=== PATIENT | male | born 1950 | race Caucasian/White ===

== ENCOUNTER → 2019-05-11 13:54 | Outpatient (BNVA) | payer MEDICARE, OTHER, SELFPAY | PROVIDERS: Family Provider Family Medicine; PCP Family Medicine; Visit Provider Anesthesiology | DX: M54.5 Low back pain (principal); M54.6 Pain in thoracic spine; Z87.81 Personal history of (healed) traumatic fracture; Z98.890 Other specified postprocedural states; Z79.891 Long term (current) use of opiate analgesic | CPT/HCPCS: 99214 ==

== ENCOUNTER → 2019-07-07 13:18 | Outpatient (BNVA) | payer MEDICARE, OTHER, SELFPAY | PROVIDERS: Family Provider Family Medicine; PCP Family Medicine; Visit Provider Nurse Practitioner | DX: Z76.89 Persons encountering health services in other specified circumstances (principal) | CPT/HCPCS: 99213 ==

== ENCOUNTER → 2021-11-13 08:59 | Outpatient (BNVA) | payer MEDICARE, OTHER, SELFPAY | PROVIDERS: Family Provider Family Medicine; PCP Family Medicine; Referring Provider Nurse Practitioner Family; Visit Provider Orthopaedic Surgery | DX: M54.6 Pain in thoracic spine (principal); S32.019A Unspecified fracture of first lumbar vertebra, initial encounter for closed fracture; W18.09XA Striking against other object with subsequent fall, initial encounter | CPT/HCPCS: 99203; 99204 ==

== ENCOUNTER 2024-05-24 12:32 | Emergency (ER) | payer MEDICARE, OTHER, SELFPAY ==
--- NOTE | 2024-05-24 12:34 | ECG_ITS ---
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 Measurements Intervals Scott Rate: 79 P: 79 ME: 200 QRS: -35 QRSD: 86 T: 45 QT: 382 QTc: 439 Interpretive Statements SINUS RHYTHM LEFT AXIS DEVIATION [QRS AXIS < -30] Compared to ECG 07/31/2017 14:58:55 Left-axis deviation now present Electronically Signed On 05-26-2024 17:33:19 STOCK SPECULATOR by Arnie Hill M.D. [id number] [id number]
[2024-05-24 12:41] VITALS: BP 147/84; PULSE 83; TEMP 36.3; O2SAT 99; BMI 22.4
--- NOTE | 2024-05-24 12:52 | XR_ITS ---
WS: [id number] PORTABLE CHEST HISTORY: cp COMPARISON: 06/08/2014 New interstitial reticulations at the lung bases but greater on the RIGHT. No dense area of consolidation. Normal pulmonary vasculature. No pleural effusion or pneumothorax. Cardiac size: Normal. Mediastinum/Aorta: Mildly ectatic aorta. Osteopenia with AC joint and glenohumeral joint arthritis. XR/XR chest 1V portable [id number] IMPRESSION: 1. New interstitial reticulations at the lung bases, RIGHT greater than LEFT. Mild pneumonitis suspected. 2. Mildly ectatic aorta.
[2024-05-24 13:26] LABS: Basophils % 0.7 %; Eosinophils # 0.2 10^3/uL (0.0-0.8); Eosinophils % 2.8 %; Hematocrit 49.6 % (37-53); Lymphocytes # 1.3 10^3/uL (0.8-4.8); Lymphocytes % 23.6 %; Mean Corpuscular HGB Conc 30.2 g/dL (30-55); Mean Corpuscular Hemoglobin 29.5 pg (27-33); Mean Corpuscular Volume 97.4 fl (82-101); Mean Platelet Volume 8.6 fL (7.4-10.4); Monocytes # 0.5 10^3/uL (0.2-0.9); Monocytes % 8.4 %; Neutrophils # 3.45 10^3/uL (1.8-7.7); Neutrophils % 64.3 %; Nucleated Red Blood Cells % 0 %; Platelet Count 227 10^3/cmm (157-399); Red Blood Count 5.09 10^6/uL (3.85-5.65); Red Cell Distribution Width 13.9 % (12.1-15.1); White Blood Count 5.37 10^3/uL (3.29-11.43)
[2024-05-24 13:55] LABS: Alanine Aminotransferase 13 U/L (0-41); Alkaline Phosphatase 138 U/L (40-130); Aspartate Amino Transferase 13 U/L (0-40); Blood Urea Nitrogen 14 mg/dL (8-23); Carbon Dioxide 23 mmol/L (22-29); Chloride 97 mmol/L (98-107); Creatinine Clr Calc Pharmacy 80.0707; Glucose 92 mg/dL (65-115); Osmolality Calculated 278 mOsm/kg (285-295); Sodium 134 mmol/L (136-145); Total Bilirubin 0.3 mg/dL (0.15-1.2)
[2024-05-24 13:57] LABS: Troponin(5th) Baseline < 6 ng/L (0-15)
[2024-05-24 13:59] LABS: Anion Gap 18.5 (5-19); Potassium 4.5 mmol/L (3.5-5.1)
--- NOTE | 2024-05-24 14:51 | ECG_ITS ---
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 Measurements Intervals [place] Rate: 84 P: 26 DC: 192 QRS: -29 QRSD: 81 T: 42 QT: 374 QTc: 443 Interpretive Statements SINUS RHYTHM WITH OCCASIONAL SUPRAVENTRICULAR PREMATURE COMPLEXES BORDERLINE LEFT AXIS DEVIATION [QRS AXIS < -20] Compared to ECG 05/24/2024 12:39:35 No significant changes Electronically Signed On 05-26-2024 18:06:16 CEO & BOARD DIRECTOR by Arnie Hill M.D. [email or web address] [id number]
--- NOTE | 2024-05-24 14:54 | W.ED.CHESTPA ---
HPI - Chest Pain General: Chief Complaint: Chest Pain Stated Complaint: chest pain, Sob,weak Time Seen by Provider: 05/24/24 14:31 Source: patient Mode of arrival: ambulatory Limitations: no limitations History of Present Illness: 74-year-old male who states that he has been having chest pain for the last week he states been a very sharp pain in the center of his chest seems to be worse with standing and movement. He also has some pain with palpation he denies any abdominal pain denies any vomiting or diarrhea. Associated symptoms: Deny abdominal pain, dyspnea, fever(s), nausea or vomiting Related Data Home Medications ?Medication ?Instructions ?Recorded ?Confirmed pantoprazole 40 mg tablet,delayed 40 mg PO DAILY 04/09/19 05/24/24 release phenytoin sodium extended 100 mg 200 mg PO TID 04/09/19 05/24/24 capsule phenobarbital 32.4 mg tablet 64.8 mg PO .BEDTIME 05/11/19 05/24/24 cyclobenzaprine 10 mg tablet 10 mg PO TID PRN Spasms 05/24/24 05/24/24 losartan 25 mg tablet 25 mg PO DAILY 05/24/24 05/24/24 Allergies Allergy/AdvReac Type Severity Reaction Status Date / Time acetaminophen (From Percocet) Allergy itching Verified 05/24/24 12:45 fluconazole (From Diflucan) Allergy unknown Verified 05/24/24 12:45 gabapentin Allergy dizziness Verified 05/24/24 12:45 hydrocodone Allergy ADR-Irritab Verified 05/24/24 12:45 le oxycodone (From Percocet) Allergy itching Verified 05/24/24 12:45 Review of Systems Const: Denies: fever(s), chills, body aches or change in appetite ENMT: Denies: throat pain or dental pain Card: Reports: chest pain Resp: Denies: dyspnea GI: Denies: abdominal pain, nausea, vomiting or diarrhea : Denies: dysuria Musc: Denies: neck pain or back pain Skin/Breast: Denies: rash Neuro: Denies: headache(s) [facility] ED PFSH: Medical History (Updated 05/24/24 @ 16:41 by Chiquita Garnica MD) Fall Encounter for long-term use of opiate analgesic Back pain, lumbosacral DDD (degenerative disc disease), lumbar Thoracic spine pain Chronic low back pain S/P neck surgery, follow-up exam 6 neck surgeries Opioid contract exists Surgical History S/P hernia repair S/P appendectomy S/P brain surgery 6 brain surgeries S/P carpal tunnel release left in 2013 Status post open reduction with internal fixation of fracture Dr. Clarke 08/01/2017-right elbow Family History Unknown Cancer Social History Smoking and tobacco/nicotine status: never used tobacco/nicotine Alcohol intake: never Substance/Drug Use: never Physical Exam Const: COMMON NORMALS: no acute distress, patient oriented x3 and healthy appearing HENMT: COMMON NORMALS: normocephalic and atraumatic HEAD & SCALP: normocephalic and atraumatic Eye: COMMON NORMALS: EOMs intact bilaterally Neck/C-Spine: COMMON NORMALS: full ROM and supple Chest: COMMONS NORMALS: normal inspection of the chest and normal palpation of entire chest wall Resp: COMMON NORMALS: normal respiratory effort, No retractions, No use of accessory muscles and clear to auscultation bilaterally AUSCULTATION: clear to auscultation bilaterally Cardio: COMMON NORMALS: regular rate, regular rhythm and No murmurs present (Cardio) RATE: regular rate RHYTHM: regular rhythm GI: COMMON NORMALS: Normal to inspection, nondistended, normoactive bowel sounds present, Soft to palpation, non-tender and no masses PALPATION: Yes Soft to palpation Extremity: COMMON NORMALS: normal to inspection and full ROM Neuro: COMMON NORMALS: patient oriented x3, moves all extremities and no focal motor deficits Psych: COMMON NORMALS: mental status grossly normal, Normal thought process present and cooperative THOUGHT PROCESS: Normal thought process present Skin: COMMON NORMALS: no rashes or lesions noted and no wounds GENERAL SKIN EXAM: no rashes or lesions noted Course Vital Signs: Vital signs: Vital Signs Temperature 97.3 F L 05/24/24 12:41 Pulse Rate 76 05/24/24 16:36 Respiratory Rate 16 05/24/24 16:36 Blood Pressure 146/89 05/24/24 16:36 Pulse Oximetry 94 05/24/24 16:36 Oxygen Delivery Me thod Room Air 02/10/25 16:36 MDM - Chest Pain Medical Decision Making Patient presents here with chest pain is atypical in nature initial repeat troponin here is negative CT showed no signs of dissection or pulm embolism. He is stable for discharge follow-up with PCP return if worsening he understands agrees to plan Medical Records I reviewed the patient's medical records. Lab Data I reviewed the patient's lab results. 05/24/24 13:19 05/24/24 13:19 Radiology Impressions Chest X-Ray 05/24/24 12:52 IMPRESSION: 1. New interstitial reticulations at the lung bases, RIGHT greater than LEFT. Mild pneumonitis suspected. 2. Mildly ectatic aorta. Chest CTA 05/24/24 15:18 IMPRESSION: 1. Technically limited exam secondary to thick sections, respiratory degradation and incomplete pulmonary expansion. No definite pulmonary embolism visualized although can not be excluded on this study; V/Q scan may be helpful in further assessment. 2. Small pulmonary nodules; per Fleischner criteria, in this age group 12 month follow-up is recommended for surveillance. 3. Mild bilateral hilar lymphadenopathy. Laboratory Results WBC 5.37 10^3/uL (3.29-11.43) 05/24/24 13:19 RBC 5.09 10^6/uL (3.85-5.65) 05/24/24 13:19 Hgb 15.00 g/dL (11.27-16.99) 05/24/24 13:19 Hct 49.6 % (37-53) 05/24/24 13:19 MCV 97.4 fl (82-101) 05/24/24 13:19 MCH 29.5 pg (27-33) 05/24/24 13:19 MCHC 30.2 g/dL (30-55) 05/24/24 13:19 RDW 13.9 % (12.1-15.1) 05/24/24 13:19 Plt Count 227 10^3/cmm (157-399) 05/24/24 13:19 MPV 8.6 fL (7.4-10.4) 05/24/24 13:19 Neut % (Auto) 64.3 % 05/24/24 13:19 Lymph % (Auto) 23.6 % 05/24/24 13:19 Coffee % (Auto) 8.4 % 05/24/24 13:19 Eos % (Auto) 2.8 % 05/24/24 13:19 Baso % (Auto) 0.7 % 05/24/24 13:19 Neut # (Auto) 3.45 10^3/uL (1.8-7.7) 05/24/24 13:19 Lymph # (Auto) 1.3 10^3/uL (0.8-4.8) 05/24/24 13:19 Coffee # (Auto) 0.5 10^3/uL (0.2-0.9) 05/24/24 13:19 Eos # (Auto) 0.2 10^3/uL (0.0-0.8) 05/24/24 13:19 Baso # (Auto) 0.0 10^3/uL (0.0-0.1) 05/24/24 13:19 Nucleated RBC % (auto) 0 % 05/24/24 13:19 Nucleated RBCs # 0.0 /100WBC 05/24/24 13:19 D-Dimer 13.40 ug/mLFEU (0-0.59) H 05/24/24 13:19 Sodium 134 mmol/L (136-145) L 05/24/24 13:19 Potassium 4.5 mmol/L (3.5-5.1) 05/24/24 13:19 Chloride 97 mmol/L (98-107) L 05/24/24 13:19 Carbon Dioxide 23 mmol/L (22-29) 05/24/24 13:19 Anion Gap 18.5 (5-19) 05/24/24 13:19 BUN 14 mg/dL (8-23) 05/24/24 13:19 Creatinine 0.9 mg/dL (0.7-1.2) 05/24/24 13:19 GFR Calculation Not Reportable 05/24/24 13:19 Glucose 92 mg/dL (65-115) 05/24/24 13:19 Calculated Osmolality 278 mOsm/kg (285-295) L 05/24/24 13:19 Calcium 9.0 mg/dL (8.5-10.5) 05/24/24 13:19 Total Bilirubin 0.3 mg/dL (0.15-1.2) 05/24/24 13:19 AST 13 U/L (0-40) 05/24/24 13:19 ALT 13 U/L (0-41) 05/24/24 13:19 Alkaline Phosphatase 138 U/L (40-130) H 05/24/24 13:19 Troponin T Baseline < 6 ng/L (0-15) 05/24/24 13:19 Troponin T 120 Minute 6.00 ng/L (0-15) 05/24/24 15:25 Delta Troponin T 0.09745 ABS# (0-10) 05/24/24 15:25 Total Protein 7.0 g/dL (6.6-8.7) 05/24/24 13:19 Albumin 4.0 g/dL (3.5-5.2) 05/24/24 13:19 Globulin 3.0 g/dL (1.3-4.6) 05/24/24 13:19 All radiology interpretation(s) finalized by discharge EKG Data EKG 1: I personally reviewed and interpreted this EKG as follows: EKG interpretation date: 05/24/24 EKG interpretation time: 12:39 Interpretation: nsr hr [address] or t wave abnormalities qrs 86 Discharge Plan Discharge Patient Disposition: Home Clinical Impression: Chest pain Condition: Stable Prescriptions: No Action pantoprazole 40 mg tablet,delayed release (DR/EC) 40 mg PO DAILY phenytoin sodium extended 100 mg capsule 200 mg PO TID phenobarbital 32.4 mg tablet 64.8 mg PO .BEDTIME cyclobenzaprine 10 mg tablet 10 mg PO TID PRN (Reason: Spasms) losartan 25 mg tablet 25 mg PO DAILY Discharge Orders: Discharge ED (Routine); Ordered 05/24/24 Ordered By: Chiquita Garnica Referrals: Victorino Randhawa [Primary Care Provider] - Discharge Diet: Advance as tolerated Discharge Activity: Resume usual activity Patient Instructions: Chest Pain (ED) Print Language: Greenlandic Coding Level of Care Code ED Vp [facility] for Erik Mariscal
--- NOTE | 2024-05-24 15:18 | CTR_ITS ---
PROCEDURE INFORMATION: Exam: CTA Chest With Contrast Exam date and time: 05/24/2024 3:48 PM Age: 74 years old Clinical indication: Sternal or substernal pain; Additional info: Cp TECHNIQUE: Imaging protocol: Computed tomographic angiography of the chest with contrast. Exam focused on the arteries. 3D rendering (Not supervised by radiologist): MIP and/or 3D reconstructed images were created by the technologist. Radiation optimization: All CT scans at this facility use at least one of these dose optimization techniques: automated exposure control; mA and/or kV adjustment per patient size (includes targeted exams where dose is matched to clinical indication); or iterative reconstruction. Contrast material: OMNI 350; Contrast volume: 100 ml; Contrast route: INTRAVENOUS (IV); COMPARISON: CR XR chest 1V portable [id number] 05/24/2024 1:04 PM RADIATION DOSE METRICS: Total DLP (mGy-cm): 335.56 FINDINGS: Pulmonary arteries: No evidence of pulmonary embolism given technical limitations of the exam. There are some findings felt to be indeterminate for pulmonary embolism given 5 mm section thickness (example left lower lobe series 4, image 49). Aorta: No evidence of thoracic aortic aneurysm. Thyroid: No significant thyroid pathology. Lungs: Suboptimal pulmonary expansion with associated accentuation of bronchovascular markings. Bibasilar areas of scar and/or atelectasis are present. There are few small pulmonary nodules present some perifissural in location (example 4 mm right mid lung zone series 4, image 33,, 3 mm right lower lobe series 4, image 35, etc.). Pleural spaces: No pleural effusion. Heart: No significant pathology. No pericardial effusion. Lymph nodes: Mild left hilar adenopathy measuring 1.1 cm short axis. Mild right hilar adenopathy also measuring up to 1.1 cm short axis. No evidence of mediastinal or axillary lymphadenopathy. Diaphragm: Small hiatal hernia. Liver: Hepatic cysts and indeterminate subcentimeter hepatic hypodensities are present. Gallbladder and biliary ducts: Prior cholecystectomy. Bones/joints: Mild degenerative change present in the spine. Multilevel compression deformities again noted in the spine. Soft tissues: No significant pathology. Other findings: Evaluation limited by respiratory degradation. CT/CT angio chest PE protcl [id number] IMPRESSION: 1. Technically limited exam secondary to thick sections, respiratory degradation and incomplete pulmonary expansion. No definite pulmonary embolism visualized although can not be excluded on this study; V/Q scan may be helpful in further assessment. 2. Small pulmonary nodules; per Fleischner criteria, in this age group 12 month follow-up is recommended for surveillance. 3. Mild bilateral hilar lymphadenopathy.
[2024-05-24 15:35] VITALS: BP 140/85; PULSE 82; RESP 16; O2SAT 96
[2024-05-24] MEDS: morphine 4 mg/mL SDV 1 mL IVP (15:48)
[2024-05-24] MEDS: ondansetron 2 mg/ML SDV 2 mL 4 MG IVP (15:48)
[2024-05-24] MEDS: iohexol 350 mg/mL 500 mL Btl (per mL) IV (15:55)
[2024-05-24 16:00] LABS: Troponin 5 2HR Delta 0.00001 ABS# (0-10)
[2024-05-24 16:36] VITALS: BP 146/89; PULSE 76; RESP 16; O2SAT 94
[2024-05-24 17:03] VITALS: BP 153/94; PULSE 87; RESP 18; O2SAT 94
== END 2024-05-24 17:04 | disposition home or self-care (01) ==
PROVIDERS: Emergency Provider Emergency Medicine; Family Provider Family Medicine; PCP Family Medicine
DX: R07.9 Chest pain, unspecified (principal)
CPT/HCPCS: 36415; 71045; 71275; 80053; 84484; 85025; 85378; 93005; 96374; 96375; 99285; J2270; J2405

== ENCOUNTER → 2024-10-05 10:22 | Outpatient (BNVA) | payer MEDICARE, OTHER, SELFPAY | PROVIDERS: Family Provider Family Medicine; PCP Family Medicine; Visit Provider Orthopaedic Surgery | DX: S42.251A Displaced fracture of greater tuberosity of right humerus, initial encounter for closed fracture (principal); W19.XXXA Unspecified fall, initial encounter | CPT/HCPCS: 73030; 99203 ==

== ENCOUNTER → 2024-11-02 10:37 | Outpatient (BNVA) | payer MEDICARE, OTHER, SELFPAY | PROVIDERS: Family Provider Family Medicine; PCP Family Medicine; Visit Provider Orthopaedic Surgery | DX: S42.294D Other nondisplaced fracture of upper end of right humerus, subsequent encounter for fracture with routine healing (principal); X58.XXXD Exposure to other specified factors, subsequent encounter | CPT/HCPCS: 73060; 99213 ==

== ENCOUNTER → 2025-03-15 15:15 | Outpatient (BNVA) | payer MEDICARE, OTHER, SELFPAY | PROVIDERS: Family Provider Family Medicine; PCP Family Medicine; Visit Provider Orthopaedic Surgery | DX: S42.294D Other nondisplaced fracture of upper end of right humerus, subsequent encounter for fracture with routine healing (principal); X58.XXXD Exposure to other specified factors, subsequent encounter | CPT/HCPCS: 73030; 99213 ==

== ENCOUNTER 2025-03-16 15:58 | Outpatient (CLI) | payer MEDICARE, OTHER, SELFPAY ==
--- NOTE | 2025-03-16 16:00 | MR_ITS ---
WS: [id number] MRI RIGHT SHOULDER HISTORY: Pain after recent fall. COMPARISON: Radiograph 03/15/2025 TECHNIQUE: Multiplanar sequences of the shoulder joint are submitted. Study is significantly compromised by motion artifact. Moderate AC joint arthropathy with fluid along the AC joint. Hypertrophic osteophytes and mild synovitis. Mild subacromial impingement. No os acromion. Biceps tendon present in the bicipital groove. Edema present in the posterior lateral humeral head is likely related to acute trauma. Mild concave deformity of the posterolateral humeral head with associated edema from trabecular injury and a cortical fracture. No significant displacement. Prior fracture has been described in dislocation. With the amount of edema suspect there is a superimposed more acute injury. Mild narrowing of the glenohumeral joint. Slightly high riding humeral head. Moderate atrophy of the supraspinatus and subscapularis muscles. Mild atrophy of the infraspinatus. Marked tendinopathy over several centimeters of the distal supraspinatus tendon. There is also an insertion site tear with extension along the tendon. Marked fraying of the surfaces of the supraspinatus. Fluid in the subacromial and subdeltoid. Narrowing of the coracohumeral interval. No definite tear is identified in the subscapularis tendon but there is significant muscle atrophy. Labrum is difficult to evaluate accurately with this amount of motion. No large tear identified. MR/MR shoulder RT wo con* [id number] IMPRESSION: 1. Study is significantly compromised by motion artifact. 2. Marrow edema in the posterolateral humeral head consistent with an acute tr abecular and cortical injury. 3. Moderate AC joint arthropathy with synovitis. 4. Normal position of the biceps tendon. 5. Moderate atrophy of the supraspinatus and subscapularis muscles. 6. Marked tendinopathy with additional insertion site tear with interstitial e xtension involving the supraspinatus. 7. No tear is identified in the subscapularis tendon. With the amount of atrop hy there may be an occult tear. 8. Mild narrowing of the glenohumeral joint.
== END 2025-03-16 15:59 | disposition home or self-care (01) ==
LOC: RAD 16:01
PROVIDERS: PCP Family Medicine; Visit Provider Orthopaedic Surgery
DX: M25.511 Pain in right shoulder (principal)
CPT/HCPCS: 73221

== ENCOUNTER → 2025-03-28 12:42 | Outpatient (BNVA) | payer MEDICARE, OTHER, SELFPAY | PROVIDERS: PCP Family Medicine; Visit Provider Nurse Practitioner | DX: M19.011 Primary osteoarthritis, right shoulder (principal); M67.911 Unspecified disorder of synovium and tendon, right shoulder; S42.294S Other nondisplaced fracture of upper end of right humerus, sequela; W19.XXXS Unspecified fall, sequela | CPT/HCPCS: 73030; 99214 ==